=== PATIENT | male | born 2000 | race Caucasian/White ===

== ENCOUNTER 2019-04-24 20:11 | Emergency (ER) | payer BC, SELFPAY ==
[2019-04-24 20:15] VITALS: BP 171/89; PULSE 104; RESP 20; TEMP 36.6; O2SAT 99
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
[2019-04-24] MEDS: Doxycycline Hyclate 100 MG CAP PO (20:41)
[2019-04-24 20:42] VITALS: BP 138/70; PULSE 88; RESP 16; O2SAT 97
== END 2019-04-24 21:25 | disposition home or self-care (01) ==
PROVIDERS: Emergency Provider Emergency Medicine; PCP Family Medicine
DX: S61.442A Puncture wound with foreign body of left hand, initial encounter (principal); W26.8XXA Contact with other sharp object(s), not elsewhere classified, initial encounter
CPT/HCPCS: 90471; 99284; 99283

== ENCOUNTER 2020-09-02 01:57 | Emergency (ER) | payer BC, SELFPAY ==
[2020-09-02 02:00] VITALS: BP 139/67; PULSE 124; RESP 20; TEMP 36.5; O2SAT 99
[2020-09-02] MEDS: Lidocaine 2% Multi-Dose 50 ML VIAL (02:07)
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
[2020-09-02 02:28] VITALS: BP 128/87; PULSE 77; RESP 14; O2SAT 99
== END 2020-09-02 02:30 | disposition home or self-care (01) ==
LOC: ER 02:28
PROVIDERS: Emergency Provider Student in an Organized Health Care Education/Training Program; PCP Family Medicine
DX: S61.012A Laceration without foreign body of left thumb without damage to nail, initial encounter (principal); W26.0XXA Contact with knife, initial encounter
CPT/HCPCS: 12001

== ENCOUNTER 2024-03-18 18:06 | Emergency (ER) | payer SELFPAY ==
[2024-03-18 18:08] VITALS: BP 162/94; PULSE 75; RESP 18; TEMP 37; O2SAT 98
[2024-03-18] MEDS: Acetaminophen 500 MG TAB 1000 MG PO (18:46)
[2024-03-18 18:49] VITALS: BP 162/94; PULSE 75; RESP 18; TEMP 37; O2SAT 98
[2024-03-18] MEDS: Cefdinir 300 MG CAP 600 MG PO (18:49)
[2024-03-18 18:51] VITALS: BP 162/94; PULSE 75; RESP 18; TEMP 37; O2SAT 98
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
== END 2024-03-18 18:53 | disposition home or self-care (01) ==
PROVIDERS: Emergency Provider Emergency Medicine; PCP Nurse Practitioner Family
DX: H66.92 Otitis media, unspecified, left ear (principal)
CPT/HCPCS: 99283; 99284

== ENCOUNTER 2025-06-18 15:28 | Outpatient (REF) | payer OTHER, SELFPAY ==
[2025-06-20 11:55] LABS: GC Result Negative (Negative)
[2025-06-20 15:45] LABS: Chlamydia Result Positive (Negative)
== END 2025-06-18 15:29 | disposition home or self-care (01) ==
LOC: LBN 15:28
PROVIDERS: Visit Provider Physician Assistant
DX: Z20.2 Contact with and (suspected) exposure to infections with a predominantly sexual mode of transmission (principal)
CPT/HCPCS: 87491; 87591